=== PATIENT | male | born 2000 | race Caucasian/White ===

== ENCOUNTER 2022-06-20 16:32 | Emergency (ER) | payer OTHER ==
[~2022-06-20] VITALS: Ht 182.9 cm; Wt 74.9 kg
[2022-06-20 16:34] VITALS: BP 131/74
== END 2022-06-20 18:30 | disposition home or self-care (01) ==
LOC: M ED 16:32
DX: S46.911A Strain of unspecified muscle, fascia and tendon at shoulder and upper arm level, right arm, initial encounter (principal); S43.401A Unspecified sprain of right shoulder joint, initial encounter; X58.XXXA Exposure to other specified factors, initial encounter; Y99.1 Military activity; F17.200 Nicotine dependence, unspecified, uncomplicated

== ENCOUNTER 2022-10-18 18:27 | Emergency (ER) | payer OTHER ==
[~2022-10-18] VITALS: Ht 188 cm; Wt 74.4 kg
[2022-10-18] MEDS ORDERED: MORPHINE 4 MG/ML 1ML VIAL IV PRN (18:35)
[2022-10-18] MEDS ORDERED: BOOSTRIX VACCINE (TETANUS/DIPHTH/ACEL. PERTUSSIS) 0.5ML SYR IM.IMMUN ONE (18:40)
[2022-10-18] MEDS ORDERED: BACITRACIN OINTMENT 30GM TUBE TOP ONE (18:40)
[2022-10-18] MEDS ORDERED: ISOVUE-370 76% 100ML VIAL As Ordered ONE (18:53)
[2022-10-18 18:54] LABS: BASO # 0.1 10^3/uL (0.0-0.2); BASO % 0.9 % (0.0-1.0); EOS # 0.3 10^3/uL (0.0-0.5); EOS % 3.4 % (0.0-3.0); HEMATOCRIT 38.4 % (42.0-52.0); HEMOGLOBIN 13.5 g/dl (13.5-17.5); LYMPH # 3.4 10^3/uL (1.5-5.0); LYMPH % 44.4 % (24.0-44.0); MEAN CORPUSCULAR HEMOGLOBIN 31.6 pg (27.0-33.0); MEAN CORPUSCULAR HGB CONC 35.2 g/dl (32.0-36.5); MEAN CORPUSCULAR VOLUME 89.9 fl (80.0-96.0); MONO # 0.5 10^3/uL (0.0-0.8); MONO % 6.9 % (2.0-8.0); NEUTROPHILS # 3.3 10^3/uL (1.5-8.5); NEUTROPHILS % 44.1 % (36.0-66.0); PLATELET COUNT, AUTOMATED 312 10^3/uL (150-450); RED BLOOD COUNT 4.27 10^6/uL (4.30-6.10); WHITE BLOOD COUNT 7.6 10^3/uL (4.0-10.0)
[2022-10-19 00:38] VITALS: O2SAT 99
[2022-10-19 00:41] VITALS: BP 124/58
== END 2022-10-19 00:46 | disposition home or self-care (01) ==
LOC: M ED 18:27
DX: T07.XXXA Unspecified multiple injuries, initial encounter (principal); S63.92XA Sprain of unspecified part of left wrist and hand, initial encounter; V28.49XA Other motorcycle driver injured in noncollision transport accident in traffic accident, initial encounter; Y92.410 Unspecified street and highway as the place of occurrence of the external cause
CPT/HCPCS: 70450; 71260; 72125; 72128; 72131; 73030; 73080; 73090; 73110; 73130; 73564; 73590; 73610; 74177; 80047; 85025; 90715; 93041; 94760; 96374; 99285; Q9967